=== PATIENT | male | born 1950 | race Caucasian/White ===

== ENCOUNTER 2016-05-01 11:38 | Inpatient (IN) | payer MEDICAID, MEDICARE ==
[~2016-05-01] VITALS: Ht 172.7 cm; Wt 75.4 kg
[~2016-05-01 11:38] MED LIST: CEFD300C2 PO; LISINOPRIL PO
[2016-05-01] MEDS ORDERED: LACTATED RINGERS 1,000 ML IV SCH (12:11)
[2016-05-01 12:13] VITALS: BP 132/94
[2016-05-01 13:25] LABS: ASPARTATE AMINO TRANSFERASE 10 U/L (15-37); BLOOD UREA NITROGEN 76 mg/dL (7-18)
[2016-05-01] MEDS ORDERED: DEXTROSE 50%, 50ML SYRINGE IVPush ONE (15:30)
[2016-05-01] MEDS ORDERED: D5%-0.45% NACL 1,000 ML IV SCH (15:30)
[2016-05-01] MEDS ORDERED: INSULIN REGULAR 100 UNITS/ML, 3ML VIAL IVPush ONE (15:30)
[2016-05-01] MEDS ORDERED: SODIUM BICARB 8.4%, 50ML SYRINGE IVPush ONE (15:30)
[2016-05-01 16:03] VITALS: BP 164/97
[2016-05-01] MEDS ORDERED: HYDROcodone/APAP 5/325 TABLET PO PRN (16:30)
[2016-05-01] MEDS ORDERED: ONDANSETRON ODT 4 MG PO PRN (16:30)
[2016-05-01] MEDS ORDERED: MORPHINE SULFATE 4 MG/ML, 1ML IVPush PRN (16:30)
[2016-05-01] MEDS ORDERED: ACETAMINOPHEN 325 MG TABLET PO PRN (16:30)
[2016-05-01] MEDS ORDERED: SODIUM BICARB 8.4%,50ML SYR. 150 MEQ in D5%-0.45% NACL 1,000 ML IV SCH (16:30)
[2016-05-01] MEDS ORDERED: ONDANSETRON 2MG/ML, 2ML IVP PRN (16:30)
[2016-05-01 17:15] VITALS: BP 150/89
[2016-05-01] MEDS: SODIUM BICARB 8.4%,50ML SYR. 150 MEQ in D5%-0.45% NACL 1,000 ML IV SCH (18:15)
[2016-05-01 18:33] VITALS: BP 169/94
[2016-05-01 21:23] LABS: BLOOD UREA NITROGEN 82 mg/dL (7-18)
[2016-05-01 22:49] VITALS: BP 147/65
[2016-05-02 01:05] LABS: POTASSIUM,URINE RANDOM 23 mmol/L
[2016-05-02 03:25] VITALS: BP 117/68
[2016-05-02 05:52] LABS: HEMOGLOBIN 10.2 g/dL (13.7-18.0)
[2016-05-02 06:16] LABS: ASPARTATE AMINO TRANSFERASE 6 U/L (15-37); BLOOD UREA NITROGEN 80 mg/dL (7-18)
[2016-05-02 07:14] VITALS: BP 134/79
[2016-05-02] MEDS: SODIUM BICARB 8.4%,50ML SYR. 150 MEQ in D5%-0.45% NACL 1,000 ML IV SCH (08:05)
[2016-05-02] MEDS ORDERED: PROPOFOL 10 MG/ML, 20ML ONE (10:40)
[2016-05-02] MEDS: SODIUM BICARBONATE 8.4% 150 MEQ in DEXTROSE 5% 1,000 ML IV SCH (10:53)
[2016-05-02 13:53] VITALS: BP 134/87
[2016-05-02] MEDS ORDERED: FENTANYL PF 100 MCG/2ML ONE (15:38)
[2016-05-02] MEDS ORDERED: MIDAZOLAM 1 MG/ML, 2ML ONE (15:38)
[2016-05-02] MEDS ORDERED: ALBUTEROL/IPRATROPIUM 2.5MG/0.5MG, 3 ML NPPB PRN (16:00)
[2016-05-02] MEDS ORDERED: ACETAMINOPHEN 325 MG TABLET PO PRN (16:00)
[2016-05-02] MEDS ORDERED: MEPERIDINE/PF 25MG/0.5ML IVPush PRN (16:00)
[2016-05-02] MEDS ORDERED: hydrALAzine 20 MG/ML, 1ML IV PRN (16:00)
[2016-05-02] MEDS ORDERED: FENTANYL PF 100 MCG/2ML IV PRN (16:00)
[2016-05-02] MEDS ORDERED: METOPROLOL 1 MG/ML, 5ML IV PRN (16:00)
[2016-05-02] MEDS ORDERED: PROMETHAZINE 25 MG/ML, 1ML IV PRN (16:00)
[2016-05-02] MEDS ORDERED: OXYcodone 5 MG/5 ML ORAL.SOL UDC PO PRN (16:00)
[2016-05-02] MEDS ORDERED: HYDROmorphone 1 MG/ML, 1ML IV PRN (16:00)
[2016-05-02 17:55] VITALS: BP 159/81
[2016-05-02 19:03] LABS: BLOOD UREA NITROGEN 73 mg/dL (7-18)
[2016-05-02 19:10] VITALS: BP 147/89
[2016-05-03] MEDS: SODIUM BICARBONATE 8.4% 150 MEQ in DEXTROSE 5% 1,000 ML IV SCH (01:58)
[2016-05-03 01:59] VITALS: BP 159/73
[2016-05-03] MEDS: SODIUM CHLORIDE 0.9% 1,000 ML IV SCH ×2 (07:30→20:19)
[2016-05-03 07:52] VITALS: BP 128/73
[2016-05-03 08:45] LABS: HEMOGLOBIN 10.5 g/dL (13.7-18.0)
[2016-05-03 09:01] LABS: BLOOD UREA NITROGEN 65 mg/dL (7-18)
[2016-05-03 13:38] VITALS: BP 153/74
[2016-05-03 22:00] VITALS: BP 131/81
[2016-05-04 02:32] VITALS: BP 146/86
[2016-05-04 06:18] LABS: BLOOD UREA NITROGEN 56 mg/dL (7-18)
[2016-05-04 07:13] VITALS: BP 160/90
[2016-05-04] MEDS: SODIUM CHLORIDE 0.9% 1,000 ML IV SCH ×2 (10:10→23:02)
[2016-05-04] MEDS: HEPARIN 5,000 UNITS/ML, 1ML SQ SCH ×2 (11:59→23:02)
[2016-05-04] MEDS: LISINOPRIL 10 MG TABLET PO SCH ×2 (11:59→20:54)
[2016-05-04 14:35] VITALS: BP 130/80
[2016-05-04 20:51] VITALS: BP 121/70
[2016-05-05 00:52] VITALS: BP 126/68
[2016-05-05 05:31] LABS: HEMOGLOBIN 9.6 g/dL (13.7-18.0)
[2016-05-05 05:58] LABS: BLOOD UREA NITROGEN 51 mg/dL (7-18)
[2016-05-05 07:56] VITALS: BP 147/86
[2016-05-05 08:03] VITALS: BP 169/104
[2016-05-05] MEDS ORDERED: LISI-167 PO ×2 (10:12→14:06)
[2016-05-05] MEDS: HEPARIN 5,000 UNITS/ML, 1ML SQ SCH (11:00)
[2016-05-05] MEDS: LISINOPRIL 10 MG TABLET PO SCH (11:50)
== END 2016-05-05 18:00 | disposition home or self-care (01) | DRG 683 ==
LOC: OUT 11:38 → 4NOR 15:02 → OUT 15:09 → 4NOR 15:09 → 4WST 17:00
PROVIDERS: ADMIT Internal Medicine; ATTEND Urology
PROC: 0TP98DZ Removal of Intraluminal Device from Ureter, Via Natural or Artificial Opening Endoscopic (ICD-10-PCS; 2016-05-02)
PROC: 0T768DZ Dilation of Right Ureter with Intraluminal Device, Via Natural or Artificial Opening Endoscopic (ICD-10-PCS; principal; 2016-05-02 16:00)
DX: N17.9 Acute kidney failure, unspecified (principal); E87.2 Acidosis; E44.1 Mild protein-calorie malnutrition; N13.2 Hydronephrosis with renal and ureteral calculous obstruction; N18.4 Chronic kidney disease, stage 4 (severe); I12.9 Hypertensive chronic kidney disease with stage 1 through stage 4 chronic kidney disease, or unspecified chronic kidney disease; E87.5 Hyperkalemia; D64.9 Anemia, unspecified; E83.51 Hypocalcemia; F12.90 Cannabis use, unspecified, uncomplicated; E74.39 Other disorders of intestinal carbohydrate absorption; R74.8 Abnormal levels of other serum enzymes; Z87.442 Personal history of urinary calculi; Z68.25 Body mass index [BMI] 25.0-25.9, adult; Z46.6 Encounter for fitting and adjustment of urinary device
CPT/HCPCS: 36415; 74000; 76770; 80048; 80053; 80069; 81001; 82306; 82436; 82570; 82728; 83540; 83550; 83970; 84133; 84300; 84550; 85025; 87086; J1644; J1815; J2250; J2704; J3010; J7070; C2617; J7030; J7120

== ENCOUNTER → 2016-05-11 | Outpatient (CLI) | payer MEDICARE, MEDICAID ==
[~2016-05-11] MED LIST changes: +LISI-167 PO
== END | disposition home or self-care (01) ==
LOC: RAD 13:58
PROVIDERS: ATTEND Internal Medicine Nephrology
DX: N13.39 Other hydronephrosis (principal); N26.1 Atrophy of kidney (terminal); N20.0 Calculus of kidney
CPT/HCPCS: 76770

== ENCOUNTER 2016-05-17 16:27 | Emergency (ER) | payer MEDICARE, MEDICAID ==
[~2016-05-17] VITALS: Ht 172.7 cm; Wt 73.6 kg
[2016-05-17 17:11] LABS: HEMOGLOBIN 12.4 g/dL (13.7-18.0)
[2016-05-17 17:21] LABS: ASPARTATE AMINO TRANSFERASE 11 U/L (15-37); BLOOD UREA NITROGEN 74 mg/dL (7-18)
[2016-05-17] MEDS ORDERED: HTN MEDICATION PO (17:36)
[2016-05-17 19:00] VITALS: BP 139/84
== END 2016-05-17 19:09 | disposition home or self-care (01) ==
LOC: ED 18:16
DX: N18.3 Chronic kidney disease, stage 3 (moderate) (principal); F12.10 Cannabis abuse, uncomplicated
CPT/HCPCS: 36415; 80053; 81001; 85025; 87086; 93005; 99285

== ENCOUNTER → 2016-05-23 | Outpatient (CLI) | payer MEDICARE, MEDICAID ==
[~2016-05-23] MED LIST changes: +HTN MEDICATION PO
== END | disposition home or self-care (01) ==
LOC: RAD 10:11
PROVIDERS: ATTEND Urology
DX: N20.0 Calculus of kidney (principal); I87.8 Other specified disorders of veins; N42.9 Disorder of prostate, unspecified; Z96.0 Presence of urogenital implants
CPT/HCPCS: 74000

== ENCOUNTER → 2016-06-07 | Outpatient (CLI) | payer MEDICARE, MEDICAID ==
[~2016-06-07] MED LIST changes: -CEFD300C2 PO; +CEFD300C37 PO; +HYDR-3240 PO
[2016-06-07 15:19] LABS: ASPARTATE AMINO TRANSFERASE 21 U/L (15-37); BLOOD UREA NITROGEN 39 mg/dL (7-18)
[2016-06-07 15:28] LABS: PATH.CAST-FLAG NOT PRESENT; SPERM-FLAG NOT PRESENT; SRC-FLAG NOT PRESENT; XTAL-FLAG NOT PRESENT; YLC-FLAG NOT PRESENT
== END | disposition home or self-care (01) ==
LOC: STAR 13:52
PROVIDERS: ATTEND Urology
DX: Z01.818 Encounter for other preprocedural examination (principal); N20.0 Calculus of kidney; N20.1 Calculus of ureter
CPT/HCPCS: 36415; 80053; 81001; 85025; 87086

== ENCOUNTER → 2016-06-12 | Outpatient (CLI) | payer MEDICARE, MEDICAID | END | disposition home or self-care (01) | LOC: RAD 10:22 | PROVIDERS: ATTEND Urology | DX: N20.0 Calculus of kidney (principal); N20.1 Calculus of ureter; I87.8 Other specified disorders of veins; Z96.0 Presence of urogenital implants | CPT/HCPCS: 74000 ==

== ENCOUNTER 2016-06-13 06:28 | Day surgery (SDC) | payer MEDICARE, MEDICAID ==
[~2016-06-13] VITALS: Ht 172.7 cm; Wt 75.0 kg
[2016-06-13] MEDS ORDERED: LACTATED RINGERS 1,000 ML IV SCH (06:44)
[2016-06-13 06:58] VITALS: BP 163/81
[2016-06-13] MEDS ORDERED: MIDAZOLAM 1 MG/ML, 2ML ONE (07:37)
[2016-06-13] MEDS ORDERED: FENTANYL PF 100 MCG/2ML ONE (07:37)
[2016-06-13] MEDS ORDERED: PROPOFOL 10 MG/ML, 20ML ONE (08:54)
[2016-06-13] MEDS ORDERED: CEFAZOLIN 1,000 MG ONE (08:54)
[2016-06-13] MEDS ORDERED: ONDANSETRON 2MG/ML, 2ML IVPush PRN (09:00)
[2016-06-13] MEDS ORDERED: ACETAMINOPHEN 325 MG TABLET PO PRN (09:00)
[2016-06-13] MEDS ORDERED: PROMETHAZINE 25 MG/ML, 1ML IV PRN (09:00)
[2016-06-13] MEDS ORDERED: hydrALAzine 20 MG/ML, 1ML IV PRN (09:00)
[2016-06-13] MEDS ORDERED: FENTANYL PF 100 MCG/2ML IV PRN (09:00)
[2016-06-13] MEDS ORDERED: METOCLOPRAMIDE 5 MG/ML, 2ML IV PRN (09:00)
[2016-06-13] MEDS ORDERED: HYDROmorphone 1 MG/ML, 1ML IV PRN (09:00)
[2016-06-13] MEDS ORDERED: LABETALOL 5MG/ML, 20ML IV PRN (09:00)
[2016-06-13] MEDS ORDERED: OXYcodone 5 MG/5 ML ORAL.SOL UDC PO PRN (09:00)
[2016-06-13] MEDS ORDERED: MEPERIDINE/PF 25MG/0.5ML IVPush PRN (09:00)
== END 2016-06-13 12:40 | disposition home or self-care (01) ==
LOC: OUT 06:28
PROVIDERS: ATTEND Urology
DX: N13.2 Hydronephrosis with renal and ureteral calculous obstruction (principal); I12.9 Hypertensive chronic kidney disease with stage 1 through stage 4 chronic kidney disease, or unspecified chronic kidney disease; N18.9 Chronic kidney disease, unspecified; Z72.89 Other problems related to lifestyle
CPT/HCPCS: 52353; 74000; 76000; J0690; J2250; J2704; J3010; J7120

== ENCOUNTER 2016-10-23 10:04 | Day surgery (SDC) | payer MEDICARE, MEDICAID ==
[~2016-10-23] VITALS: Ht 172.7 cm; Wt 77.7 kg
[~2016-10-23 10:04] MED LIST changes: +HEPARIN 1,000 UNITS/ML, 10ML ONE
[2016-10-23] MEDS ORDERED: SODIUM CHLORIDE 0.9% 1,000 ML IV SCH (10:46)
[2016-10-23] MEDS ORDERED: SODIUM BICARB PO (10:52)
[2016-10-23] MEDS ORDERED: MULT-658 PO (10:52)
[2016-10-23 10:55] VITALS: BP 156/89
[2016-10-23] MEDS ORDERED: LIDOCAINE 1%, 2ML SQ PRN (11:00)
[2016-10-23] MEDS ORDERED: FENTANYL PF 100 MCG/2ML ONE (13:09)
[2016-10-23] MEDS ORDERED: MIDAZOLAM 1 MG/ML, 2ML ONE (13:37)
[2016-10-23] MEDS ORDERED: CEFAZOLIN 1,000 MG ONE (13:41)
[2016-10-23] MEDS ORDERED: PROPOFOL 10 MG/ML, 20ML ONE (13:41)
[2016-10-23] MEDS ORDERED: LABETALOL 5MG/ML, 20ML IV PRN (14:00)
[2016-10-23] MEDS ORDERED: OXYcodone 5 MG/5 ML ORAL.SOL UDC PO PRN (14:00)
[2016-10-23] MEDS ORDERED: ONDANSETRON 2MG/ML, 2ML IVPush PRN (14:00)
[2016-10-23] MEDS ORDERED: FENTANYL PF 100 MCG/2ML IV PRN (14:00)
[2016-10-23] MEDS ORDERED: PROMETHAZINE 25 MG/ML, 1ML IV PRN (14:00)
[2016-10-23] MEDS ORDERED: HYDROmorphone 1 MG/ML, 1ML IV PRN (14:00)
[2016-10-23] MEDS ORDERED: hydrALAzine 20 MG/ML, 1ML IV PRN (14:00)
[2016-10-23] MEDS ORDERED: OXYcodone 5 MG/5 ML ORAL.SOL UDC ONE (15:05)
== END 2016-10-23 16:55 ==
LOC: OUT 10:04
PROVIDERS: ATTEND Surgery Vascular Surgery
DX: N18.6 End stage renal disease (principal)
CPT/HCPCS: 36415; 36821; 80047; 93005; J0690; J1644; J2250; J2704; J3010; J7030

== ENCOUNTER → 2016-12-21 | Outpatient (CLI) | payer MEDICARE, MEDICAID ==
[~2016-12-21] MED LIST changes: -HEPARIN 1,000 UNITS/ML, 10ML ONE; +MULT-658 PO; +SODIUM BICARB PO
== END | disposition home or self-care (01) ==
LOC: RAD 10:31
PROVIDERS: ATTEND Urology
DX: Z87.442 Personal history of urinary calculi (principal)
CPT/HCPCS: 74000

== ENCOUNTER → 2019-11-28 | Outpatient (CLI) | payer MEDICARE, MEDICAID | END | disposition home or self-care (01) | LOC: CFH 13:56 | PROVIDERS: ATTEND Internal Medicine Nephrology | DX: N26.1 Atrophy of kidney (terminal) (principal); N20.0 Calculus of kidney; N18.4 Chronic kidney disease, stage 4 (severe) | CPT/HCPCS: 76770 ==